=== PATIENT | female | born 1975 | race Caucasian/White ===

== ENCOUNTER 2021-09-09 11:53 | Emergency (ER) | payer SELFPAY | END 2021-09-09 12:15 | LOC: MW.ED 11:53 | DX: Z02.89 Encounter for other administrative examinations (principal) | CPT/HCPCS: 99283 ==

== ENCOUNTER 2021-09-10 16:06 | Emergency (ER) | payer SELFPAY ==
[2021-09-10] MEDS ORDERED: cloNIDine 0.1 MG Tab PO ONE (18:15)
== END 2021-09-10 18:47 | disposition home or self-care (01) ==
LOC: MW.ED 16:06
DX: S09.90XA Unspecified injury of head, initial encounter (principal); F11.23 Opioid dependence with withdrawal; I10 Essential (primary) hypertension; Z72.0 Tobacco use; W18.09XA Striking against other object with subsequent fall, initial encounter
CPT/HCPCS: 70450; 99284; A9270

== ENCOUNTER 2021-12-06 22:26 | Emergency (ER) | payer SELFPAY ==
[2021-12-06] MEDS ORDERED: Azithromycin 250 MG Tab PO STA (23:32)
== END 2021-12-06 23:57 | disposition home or self-care (01) ==
LOC: MW.ED 22:26
DX: J02.9 Acute pharyngitis, unspecified (principal); I10 Essential (primary) hypertension; Z86.16 Personal history of COVID-19; Z87.891 Personal history of nicotine dependence
CPT/HCPCS: 99283; A9270

== ENCOUNTER 2021-12-09 08:24 | Emergency (ER) | payer SELFPAY | END 2021-12-09 09:47 | disposition home or self-care (01) | LOC: MW.ED 08:24 | DX: R05.9 Cough, unspecified (principal); I10 Essential (primary) hypertension; Z86.16 Personal history of COVID-19 | CPT/HCPCS: 99283 ==

== ENCOUNTER 2021-12-14 09:33 | Emergency (ER) | payer SELFPAY | END 2021-12-14 11:00 | disposition home or self-care (01) | LOC: MW.ED 09:33 | DX: R05.9 Cough, unspecified (principal); I10 Essential (primary) hypertension; Z86.16 Personal history of COVID-19; Z79.899 Other long term (current) drug therapy | CPT/HCPCS: 71046; 71046-26; 99283-25 ==

== ENCOUNTER 2022-09-06 07:48 | Emergency (ER) | payer BC, MEDICAID ==
[2022-09-06] MEDS ORDERED: Ketorolac 30 MG/ML SDV IVPUSH ONE (08:05)
[2022-09-06] MEDS ORDERED: Metoclopramide 10 MG/2 ML SDV IVPUSH ONE (08:05)
[2022-09-06] MEDS ORDERED: diphenhydrAMINE 50 MG/ML SDV IVPUSH ONE (08:05)
[2022-09-06] MEDS ORDERED: Sodium Chloride 0.9% 1,000 ML IV ONE (08:06)
== END 2022-09-06 10:04 | disposition home or self-care (01) ==
LOC: MW.ED 07:48
DX: G43.909 Migraine, unspecified, not intractable, without status migrainosus (principal); M54.50 Low back pain, unspecified; I10 Essential (primary) hypertension; F17.200 Nicotine dependence, unspecified, uncomplicated; Z79.899 Other long term (current) drug therapy; Z86.16 Personal history of COVID-19
CPT/HCPCS: 96361; 96374; 96375; 99283; J1200; J1885; J2765; J7030; 99284

== ENCOUNTER 2022-11-09 19:45 | Emergency (ER) | payer BC ==
[2022-11-09] MEDS ORDERED: Acetaminophen 500 MG Tab PO ONE (20:16)
[2022-11-09 20:59] LABS: CORONAVIRUS COVID-19 NAA NEGATIVE (NEGATIVE); INFLUENZA A NAA NEGATIVE (NEGATIVE); INFLUENZA B NAA NEGATIVE (NEGATIVE)
== END 2022-11-09 21:15 | disposition home or self-care (01) ==
LOC: MW.ED 19:45
DX: H66.92 Otitis media, unspecified, left ear (principal); J32.9 Chronic sinusitis, unspecified; I10 Essential (primary) hypertension; Z86.16 Personal history of COVID-19; Z79.899 Other long term (current) drug therapy; Z87.891 Personal history of nicotine dependence; Z20.822 Contact with and (suspected) exposure to COVID-19
CPT/HCPCS: 0240U; 87651-QW; 99283; 99284; A9270-GY

== ENCOUNTER 2023-08-28 11:12 | Emergency (ER) | payer OTHER, MEDICAID ==
[2023-08-28] MEDS ORDERED: Acetaminophen 500 MG Tab PO ONE (11:50)
[2023-08-28 12:40] LABS: CORONAVIRUS COVID-19 NAA NEGATIVE (NEGATIVE); INFLUENZA A NAA NEGATIVE (NEGATIVE); INFLUENZA B NAA POSITIVE (NEGATIVE); RESPIRATORY SYNCYTIAL VIR NAA NEGATIVE (NEGATIVE)
== END 2023-08-28 13:18 | disposition home or self-care (01) ==
LOC: MW.ED 11:12
DX: J10.1 Influenza due to other identified influenza virus with other respiratory manifestations (principal); I10 Essential (primary) hypertension; Z86.16 Personal history of COVID-19; F17.200 Nicotine dependence, unspecified, uncomplicated
CPT/HCPCS: 0241U; 99283; A9270

== ENCOUNTER 2023-10-20 09:38 | Emergency (ER) | payer MEDICAID, OTHER ==
[2023-10-20 10:09] LABS: BASE EXCESS VENOUS 2.7 (-2.0-3.0); PH,VENOUS 7.39 (7.31-7.41)
[2023-10-20 10:10] LABS: BASOPHILS ABSOLUTE AUTO 0.03 K/uL (0.00-0.20); BASOPHILS PERCENT AUTO 0.6 % (0.0-1.0); EOSINOPHILS ABSOLUTE AUTO 0.13 K/uL (0.00-0.45); EOSINOPHILS PERCENT AUTO 2.5 % (0.0-6.0); HEMATOCRIT 36.7 % (37.0-47.0); HEMOGLOBIN 12.6 g/dL (12.0-16.0); IMMATURE GRAN ABSOLUTE AUTO 0.01 K/uL (0.00-0.05); IMMATURE GRAN PERCENT AUTO 0.2 % (0.0-0.4); LYMPHOCYTES ABSOLUTE AUTO 1.35 K/uL (1.00-4.80); LYMPHOCYTES PERCENT AUTO 25.9 % (24.0-44.0); MEAN CORPUSCULAR HEMOGLOBIN 29.5 pg (28.0-32.0); MEAN CORPUSCULAR HGB CONC 34.3 g/dL (32.0-36.0); MEAN CORPUSCULAR VOLUME 85.9 fL (83.0-99.0); MEAN PLATELET VOLUME 11.3 fL (9.4-12.3); MONOCYTES ABSOLUTE AUTO 0.38 K/uL (0.00-0.80); MONOCYTES PERCENT AUTO 7.3 % (0.0-8.0); NEUTROPHILS ABSOLUTE AUTO 3.32 K/uL (1.80-7.70); NEUTROPHILS PERCENT AUTO 63.5 % (41.0-71.0); NRBC ABSOLUTE 0.02 K/uL (0.00-0.02); NRBC PERCENT 0.4 /100WBC (0.0-0.2); PLATELET COUNT,PLT 256 K/uL (150-400); RED BLOOD CELL COUNT 4.27 M/uL (4.10-5.30); WHITE BLOOD CELL COUNT,WBC 5.22 K/uL (3.9-11.3)
[2023-10-20] MEDS: Sodium Chloride 0.9% 1,000 ML IV ONE (10:15)
[2023-10-20 10:27] LABS: INR 0.99 (0.86-1.11); PTT,PARTIAL THROMBOPLSTIN TIME 23.3 SEC (23.9-30.7)
[2023-10-20 10:42] LABS: ALBUMIN 3.4 g/dL (3.4-5.0); BILIRUBIN TOTAL 0.5 mg/dL (0.2-1.0); CALCIUM 8.9 mg/dL (8.5-10.1); CARBON DIOXIDE,CO2 27.8 mmol/L (21.0-32.0); CREATININE 0.9 mg/dL (0.6-1.0); EST CRCL DRUG DOSING (CG) 72.72 mL/min; MAGNESIUM 1.9 mg/dL (1.8-2.4); POTASSIUM,K 4.1 mmol/L (3.5-5.1); PROTEIN TOTAL,TP 6.8 g/dL (6.4-8.2); TSH ULTRASENSITIVE 1.07 uIU/mL (0.36-3.74)
[2023-10-20] MEDS: Iopamidol 755 MG/ML 500 ML Multipack Bottle IVPUSH STA (11:24)
== END 2023-10-20 12:25 | disposition home or self-care (01) ==
LOC: MW.ED 09:38
DX: R06.02 Shortness of breath (principal); I10 Essential (primary) hypertension; Z86.16 Personal history of COVID-19; Z79.899 Other long term (current) drug therapy
CPT/HCPCS: 36415; 71275; 80053; 82803; 83735; 84443; 84484; 84703; 85025; 85610; 85730; 93005; 96360; 99285; J7030; Q9967; 93010; 99284

== ENCOUNTER 2023-11-11 14:28 | Emergency (ER) | payer MEDICAID, OTHER ==
[2023-11-11] MEDS: LORazepam 1 MG Tab PO ONE (15:21)
[2023-11-11 15:29] LABS: BASOPHILS ABSOLUTE AUTO 0.04 K/uL (0.00-0.20); BASOPHILS PERCENT AUTO 0.5 % (0.0-1.0); EOSINOPHILS ABSOLUTE AUTO 0.14 K/uL (0.00-0.45); EOSINOPHILS PERCENT AUTO 1.7 % (0.0-6.0); HEMATOCRIT 36.8 % (37.0-47.0); HEMOGLOBIN 12.9 g/dL (12.0-16.0); IMMATURE GRAN ABSOLUTE AUTO 0.03 K/uL (0.00-0.05); IMMATURE GRAN PERCENT AUTO 0.4 % (0.0-0.4); LYMPHOCYTES ABSOLUTE AUTO 2.45 K/uL (1.00-4.80); LYMPHOCYTES PERCENT AUTO 29.8 % (24.0-44.0); MEAN CORPUSCULAR HEMOGLOBIN 29.9 pg (28.0-32.0); MEAN CORPUSCULAR HGB CONC 35.1 g/dL (32.0-36.0); MEAN CORPUSCULAR VOLUME 85.4 fL (83.0-99.0); MEAN PLATELET VOLUME 11.1 fL (9.4-12.3); MONOCYTES ABSOLUTE AUTO 0.44 K/uL (0.00-0.80); MONOCYTES PERCENT AUTO 5.3 % (0.0-8.0); NEUTROPHILS ABSOLUTE AUTO 5.13 K/uL (1.80-7.70); NEUTROPHILS PERCENT AUTO 62.3 % (41.0-71.0); PLATELET COUNT,PLT 265 K/uL (150-400); RED BLOOD CELL COUNT 4.31 M/uL (4.10-5.30); WHITE BLOOD CELL COUNT,WBC 8.23 K/uL (3.9-11.3)
[2023-11-11 16:00] LABS: A/G RATIO 1.1 (0.9-1.6); ALBUMIN 3.7 g/dL (3.4-5.0); BILIRUBIN TOTAL 0.3 mg/dL (0.2-1.0); CALCIUM 9.2 mg/dL (8.5-10.1); CARBON DIOXIDE,CO2 23.7 mmol/L (21.0-32.0); CREATININE 0.8 mg/dL (0.6-1.0); EST CRCL DRUG DOSING (CG) 78.76 mL/min; POTASSIUM,K 3.5 mmol/L (3.5-5.1); PROTEIN TOTAL,TP 7.1 g/dL (6.4-8.2); TSH ULTRASENSITIVE 0.82 uIU/mL (0.36-3.74)
== END 2023-11-11 17:13 | disposition home or self-care (01) ==
LOC: MW.ED 14:28
DX: R07.9 Chest pain, unspecified (principal); I10 Essential (primary) hypertension; Z79.899 Other long term (current) drug therapy; Z75.8 Other problems related to medical facilities and other health care
CPT/HCPCS: 36415; 71045; 80053; 84443; 84484; 85025; 85379; 93005; 99285; A9270; 93010; 99283

== ENCOUNTER 2024-02-02 11:07 | Emergency (ER) | payer OTHER ==
[2024-02-02 12:11] LABS: APPEARANCE,URINE CLOUDY; BILIRUBIN,URINE NEGATIVE (NEGATIVE); COLOR,URINE YELLOW; GLUCOSE,URINE NEGATIVE (NEGATIVE); KETONES,URINE NEGATIVE (NEGATIVE); LEUKOCYTE ESTERASE,URINE SMALL (NEGATIVE); NITRITE,URINE NEGATIVE (NEGATIVE); OCCULT BLOOD,URINE NEGATIVE (NEGATIVE); PROTEIN,URINE NEGATIVE (NEGATIVE); UROBILINOGEN,URINE 0.2 EU/dL (<2.0)
[2024-02-02 12:20] LABS: BACTERIA,URINE MANY (NEGATIVE); EPITHELIAL CELLS,URINE MODERATE (NONE-FEW); WBC,URINE TOO NUMEROUS TO CT (0-5/HPF)
[2024-02-02] MEDS: cefTRIAXone 1 GM in Sodium Chloride 0.9% 50 ML IV ONE (13:00)
[2024-02-02] MEDS: Sodium Chloride 0.9% 2.5 ML Syringe FLUSH PRN (13:00)
[2024-02-02] MEDS: Sodium Chloride 0.9% 10 ML Syringe FLUSH PRN (13:00)
== END 2024-02-02 13:57 | disposition home or self-care (01) ==
LOC: MW.ED 11:07
DX: N30.00 Acute cystitis without hematuria (principal); N12 Tubulo-interstitial nephritis, not specified as acute or chronic; F17.210 Nicotine dependence, cigarettes, uncomplicated; I10 Essential (primary) hypertension; Z79.899 Other long term (current) drug therapy
CPT/HCPCS: 81001; 81025; 87086; 87088; 87186; 96365; 99284; J0696; J3490; 99283